=== PATIENT | male | born 2000 | race Two or more races ===

== ENCOUNTER 2021-07-31 02:51 | Emergency (ER) | payer MEDICAID, OTHER ==
[~2021-07-31] VITALS: Ht 177.8 cm; Wt 53.5 kg
[2021-07-31 02:51] VITALS: BP 129/109
[2021-07-31] MEDS ORDERED: IBUPROFEN 400 MG TAB PO ONE (04:30)
== END 2021-07-31 04:34 | disposition left against medical advice (07) ==
LOC: ER 02:51 → EDSEX 02:51 → ER 04:34
DX: R07.89 Other chest pain (principal); F12.10 Cannabis abuse, uncomplicated

== ENCOUNTER 2021-10-21 10:42 | Emergency (ER) | payer SELFPAY ==
[~2021-10-21] VITALS: Ht 177.8 cm; Wt 56.7 kg
[2021-10-21 13:08] VITALS: BP 124/74
== END 2021-10-21 13:09 | disposition home or self-care (01) ==
LOC: ER 10:42
DX: S36.60XA Unspecified injury of rectum, initial encounter (principal); K64.8 Other hemorrhoids; F12.10 Cannabis abuse, uncomplicated; X58.XXXA Exposure to other specified factors, initial encounter; Y93.89 Activity, other specified; Y92.89 Other specified places as the place of occurrence of the external cause; Y99.8 Other external cause status